=== PATIENT | female | born 1950 | race Caucasian/White ===

== ENCOUNTER → 2016-08-10 | Outpatient (CLI) | payer OTHER ==
[~2016-08-10] MED LIST: ACETAMINOPHEN325 MG PO; ACETAMINOPHEN650 M1 PO; ALEVE PO; ALPRAZOLAM0.25 MG PO; ALPRAZOLAM0.5 MG PO; ANASTROZOLE1 MG PO; APAP325 MG PO; AROMASIN25 MG PO; ASPIRIN81 M2 PO; CALCIUM500 MG PO; CALTRATE 600 W-1 TAB PO; COMBIVENT U/D3 ML INH; DOC-Q-LACE100 MG PO; DUONEB 2.5-0.5 M3 ML IH; ENOXAPARIN40 MG/0.4 SUBQ; GENTLE LAXATIVE10 MG RC; HYDROCHLOROTH12.5 M1 PO; HYDROCHLOROTH12.5 MG PO; HYDROCHLOROTHIA25 MG PO; HYDROCODON-ACE1 EAC5 PO; HYDROCODON-ACE1 EACH PO; IBRANCE125 MG; K-DUR20 ME1 PO; KEFLEX500 M1 PO; KEPPRA500 M1 PO; MS CONTIN15 MG PO; MYLANTA125 MG PO; NICOTINE TRANSD21 MG TD; NYSTATIN5 ML PO; OMEPRAZOLE20 M2 PO; ORAMORPH SR30 MG PO; OXYCODON-ACETA1 EAC1 PO; PERCOCET PO; TEMAZEPAM30 MG PO; TRAMADOL HCL50 M2 PO; VITAMIN C500 M1 PO; ZOLPIDEM TARTRAT5 MG PO; ZOSYN 3.373.375 G/VI IV
--- NOTE | ~2016-08-10 | XA91 ---
[facility] A Service of [facility] RADIOLOGY TEXT RESULTS PATIENT: FRANTZ IBARRA LOCATION: [facility] : 48 UNIT #: [id number] AGE: [address]: Talib Gee MD SEX: F ORDER DR: [id number] [facility] [address] [place], [place] [address] [id number] O MR#: [id number] Acc #: [id number] NAME: FRANTZ IBARRA : 1950 SEX: F STUDY DATE/TIME: 08/10/2016 8:15 UNIT: [facility] ROOM: STUDY DESCRIPTION: XA CVC Tunneled W Port Attending Physician: Talib Gee M.D. Ordering Physician: Talib Gee M.D. Primary Care Physician: Kaitlynn Ramsey A.P.R.N. MEDICAL IMAGING REPORT This report is preliminary unless electronic signature is present EXAM MediPort placement INDICATION Lung cancer. Patient has a known history of breast cancer and has subsequently been diagnosed with lung cancer. PROCEDURE The procedure was explained to the patient including risks, benefits and potential complications and potential for alternative forms of treatment. Informed consent was obtained and prior to initiating the procedure, a formal time-out procedure was performed. Using all elements of maximal sterile barrier technique including hand hygiene, caps, sterile gowns, and gloves and masks, the right neck and chest were prepped with 2% Chlorhexidine for cutaneous antisepsis and covered with a large sterile sheath. Real-time sterile ultrasound guidance was used to localize the right internal jugular vein which was found to be patent and compressible. A hard copy ultrasound image was obtained after local anesthesia with 1% Xylocaine and venous puncture using real-time sterile ultrasound guidance and an 0.018 guidewire was advanced into the superior vena cava and under fluoroscopic guidance. Micropuncture sheath was advanced over the wire and a J-wire was advanced into the inferior vena cava. At this point, I turned my attention to creation of port pocket. The skin and subcutaneous tissues at the right anterolateral chest wall were assessed with buffered lidocaine and lidocaine with epinephrine. A small skin incision was made. Port pocket was created using a combination of blunt and sharp dissection and the port was seen within the pocket and secured using 2 3-0 Vicryl sutures. The catheter was then tunneled up through the right anterolateral chest wall to the insertion site at the neck. A peel-away sheath was advanced through the wire. [facility]ter was measured and [facility] RADIOLOGY TEXT RESULTS PATIENT: FRANTZ IBARRA LOCATION: [facility] : 48 UNIT #: [id number] AGE: [address]: Talib Gee MD SEX: F ORDER DR: and was positioned within the superior vena cava. Following placement of the catheter it flushed and aspirated easily. Its position was confirmed with a radiographic image. Deep layer port pocket was closed using interrupted 3-0 Vicryl sutures. A running 4-0 Monocryl suture was used to close the skin and a single 4-0 Monocryl suture was used to close the insertion site at the neck. Dermabond was applied to the wound to act as a dressing. Total fluoroscopy time was 0.1 minutes AK was 1 mGy. The patient did receive conscious sedation consisting 4 mg of Versed and 25 mcg of Fentanyl and continuous monitoring was provided throughout the procedure. IMPRESSION Technically successful right internal jugular vein MediPort placement. Ultrasound and fluoroscopy were used during placement of the catheter and permanent images were saved. Dictated by... Millie Szymanski M.D. THIS IS AN ELECTRONICALLY VERIFIED REPORT Millie Szymanski M.D. at 08/10/2016 5:27 PM AFF/aa TD: 08/10/2016 12:13 JOB #: [id number] MEDICAL IMAGING REPORT COPY
[2016-08-10 06:51] LABS: PARTIAL THROMBOPLASTIN TIME 27.3 SECONDS (23.5-31.3); PROTHROMBIN TIME (PATIENT) 10.3 SECONDS (9.6-11.5)
[2016-08-10 06:54] LABS: HEMATOCRIT 36.7 % (35.0-45.0); HEMOGLOBIN 12.5 gm/dL (12.0-16.0); MEAN CORPUSCULAR HEMOGLOBIN 38.6 PG (28-34); MEAN CORPUSCULAR HGB CONC 34.2 g/dL (30-36); MEAN PLATELET VOLUME 8.5 FL (6.5-11.5); RED BLOOD COUNT 3.24 X10e (3.90-5.30); RED CELL DISTRIBUTION WIDTH 14.1 % (11.0-15.5)
== END | disposition home or self-care (01) ==
LOC: CIVR 05:58
PROVIDERS: Internal Medicine Hematology
PROC: 05HM33Z Insertion of Infusion Device into Right Internal Jugular Vein, Percutaneous Approach (ICD-10-PCS; principal; 2016-08-10)
DX: Z45.2 Encounter for adjustment and management of vascular access device (principal); C50.112 Malignant neoplasm of central portion of left female breast; C79.51 Secondary malignant neoplasm of bone; C34.91 Malignant neoplasm of unspecified part of right bronchus or lung; Z17.0 Estrogen receptor positive status [ER+]; F17.200 Nicotine dependence, unspecified, uncomplicated; G40.909 Epilepsy, unspecified, not intractable, without status epilepticus; Z79.899 Other long term (current) drug therapy
CPT/HCPCS: 36415; 76937; 77001; 85027; 85610; 85730; C1788; J0690; J1642; J2250; J3010

== ENCOUNTER → 2016-12-27 | Outpatient (CLI) | payer OTHER ==
--- NOTE | ~2016-12-27 | CT2 ---
[facility] A Service of [facility] RADIOLOGY TEXT RESULTS PATIENT: FRANTZ IBARRA LOCATION: [facility] : 48 UNIT #: [id number] AGE: [address]: Michael Calderón MD SEX: F ORDER DR: [id number] [id number] [place], [place] [address] [id number] O MR#: [id number] Acc #: [id number] NAME: FRANTZ IBARRA : 1950 SEX: F STUDY DATE/TIME: 12/27/2016 8:11 UNIT: [facility] ROOM: STUDY DESCRIPTION: CT Abd and Pelv W Cont Attending Physician: Michael Calderón M.D. Referring Physician: Michael Calderón M.D. Ordering Physician: Michael Calderón M.D. Primary Care Physician: [facility] IMAGING REPORT This report is preliminary unless electronic signature is present EXAM CT abdomen and pelvis with contrast INDICATION Restaging lung cancer. Observation for response to therapy and metastatic disease. PROCEDURE Contrast-enhanced CT of the abdomen and pelvis. This CT exam was performed with one or more of the following radiation dose reduction techniques: automatic exposure control, adjustment of mA and/or kV according to patient size, and iterative reconstruction. COMPARISON 07/14/2016 FINDINGS ABDOMEN WITH CONTRAST: There is a 7.0 mm low-attenuation lesion in segment 4B of the liver. This is new compared with the prior. It is indeterminate on this study, but is suspicious for a small metastasis. The spleen, adrenal glands, pancreas, gallbladder unremarkable. The bowel loops are nondilated. Moderate colonic stool burden. Atrophy of the right kidney is stable. No abdominal adenopathy. PELVIS WITH CONTRAST: Much of the pelvis is obscured by streak artifact from the right hip prosthesis. No appreciable pelvic mass or adenopathy. Osseous metastatic disease is not significantly changed from the prior. IMPRESSION 1. Stable osseous metastatic disease. [facility] A Service [facility] RADIOLOGY TEXT RESULTS PATIENT: FRANTZ IBARRA LOCATION: [facility] : 48 UNIT #: [id number] AGE: [address]: Michael Calderón MD SEX: F ORDER DR: 2. Refer to the separately dictated chest CT for thoracic findings. 3. There is a 7.0 mm low density lesion in segment 4B of the liver not clearly seen on the prior. It is indeterminate but suspicious for a small metastasis. This should be followed on future studies. Dictated by... Juan Carlos Cruz M.D. THIS IS AN ELECTRONICALLY VERIFIED REPORT Juan Carlos Cruz M.D. at 12/28/2016 10:45 AM Sadiq TD: 12/27/2016 13:12 JOB #: [id number] MEDICAL IMAGING REPORT Page 1 of 1 COPY
--- NOTE | ~2016-12-27 | MR17 ---
[facility] A Service of [facility] RADIOLOGY TEXT RESULTS PATIENT: FRANT[facility] IBARRA [facility] UNIT #: [id number] AGE: [address]: Michael Calderón MD SEX: F ORDER DR: [id number] [facility] [address] [place], [place] [address] [id number] O MR#: [id number] Acc #: [id number] NAME: FRANTZ IBARRA : 1950 SEX: F STUDY DATE/TIME: 12/27/2016 11:00 UNIT: [facility] ROOM: STUDY DESCRIPTION: MR Brain WWo Contrast Attending Physician: Michael Calderón M.D. Referring Physician: Michael Calderón M.D. Ordering Physician: Michael Calderón M.D. Primary Care Physician: [facility] CENTER REPORT This report is preliminary unless electronic signature is present. EXAM MRI of the brain with and without contrast dated 12/27/2016 COMPARISON MRI brain with and without contrast dated 08/02/2016. HISTORY Breasts, lung and bone cancer. Evaluate for metastatic disease. No new symptoms. FINDINGS Multisequence, multiplanar imaging of the brain was obtained with and without contrast. GFR measured greater than 60. 12 mL of MultiHance was administered intravenously. No acute stroke, enhancing mass, mass effect, midline shift or hydrocephalus. Age-appropriate parenchymal volume is seen. Scattered few small hyperintense T2-signal lesions are noted in the subcortical white matter, periventricular white matter, posterior aspect of right external/extreme capsule and adjacent putamen, marii. There is also a hyperintense T2 nonenhancing lesion noted in the lateral aspect of the right anterior commissure, along the inferior aspect of the right lentiform nucleus. These are stable in the last 5 months. Age-appropriate parenchymal volume is seen. No enhancing lesions. IMPRESSION 1. No significant interval change. 2. Scattered nonspecific nonenhancing hyperintense T2-signal lesions are noted in the brain, likely related to mild chronic microvascular ischemic change or migraine based on age and statistics. 3. No enhancing mass to suggest metastasis. Dictated by... Tatianna Gipson M.D. [facility]. [facility] A Service of [facility] & [facility] RADIOLOGY TEXT RESULTS PATIENT: FRANTZ IBARRA LOCATION: [facility] : 48 UNIT #: [id number] AGE: [address]: Michael Calderón MD SEX: F ORDER DR: THIS IS AN ELECTRONICALLY VERIFIED REPORT Tatianna Gipson M.D. at 12/28/2016 1:13 PM CPR/mjs TD: 12/28/2016 08:56 JOB #: [id number] MRI CENTER REPORT Page 1 of 1 COPY
--- NOTE | ~2016-12-27 | CT55 ---
[facility] A Service of [facility] & [facility] RADIOLOGY TEXT RESULTS PATIENT: FRANTZ IBARRA LOCATION: [facility] : 48 UNIT #: [id number] AGE: [address]: Michael Calderón MD SEX: F ORDER DR: [id number] [facility] [address] [place], [place] [address] [id number] O MR#: [id number] Acc #: [id number] NAME: FRANTZ IBARRA : 1950 SEX: F STUDY DATE/TIME: 12/27/2016 09:40 UNIT: [facility] ROOM: STUDY DESCRIPTION: CT Chest W Con Attending Physician: Michael Calderón M.D. Referring Physician: Michael Calderón M.D. Ordering Physician: Michael Calderón M.D. Primary Care Physician: [facility] IMAGING REPORT This report is preliminary unless electronic signature is present EXAM CT chest with contrast 12/27/2016 0940 hours CLINICAL HISTORY 66-year-old woman with history of prior breast cancer and limited stage small cell lung carcinoma for restaging. Patient has received chemo and radiation therapy. COMPARISON PET/CT 08/02/2016, chest CT 07/14/2016. TECHNIQUE Dynamic helical CT images were obtained from the lung apices through the adrenal glands. Sagittal and coronal reconstructions were performed. Total exam DLP for the chest, abdomen and pelvis study today is 805 mGy-cm. This CT examination was performed with one or more of the following radiation dose reduction techniques: automatic exposure control, adjustment of mA and/or kV according to patient size, and iterative reconstruction. FINDINGS Images through the thoracic inlet demonstrate no thyroid mass or supraclavicular adenopathy. There is a right IJ port catheter with tip terminating in SVC. Images through the chest demonstrate no pathologic superior mediastinal, mediastinal or hilar adenopathy. Previous enlarged, PET positive nodes seen on PET/CT 08/02/2016 are no longer seen. Previous right pleural effusion is no longer seen. The nodule or mass in the anterior right upper lobe seen on PET/CT 08/02/2016 is significantly smaller with ovoid residual density measuring only 7 mm where previous mass measured 1.8 x 1.4 cm. There is subtle nodular thickening of the STS. [facility] A Service of [facility] RADIOLOGY TEXT RESULTS PATIENT: FRANTZ IBARRA LOCATION: [facility] : 48 UNIT #: [id number] AGE: [address]: Michael Calderón MD SEX: F ORDER DR: pleura within the fissure on the right appearing [id number] improved. No left lung nodules are seen. There is sclerotic density at previous bone lesions in the right anterior mid ribs. There is sclerotic change in the lower thoracic spine. There is sclerotic change in the mid to lower sternum similar to prior exam. IMPRESSION 1. Significant interval improvement. No residual pathologic nodes in the mediastinum. Previous right upper lobe nodule is significantly decreased measuring 7 mm previously 1.8 x 1.4 cm. There is some residual slightly nodular thickening of the pleura within the fissure on the right but no residual pleural effusion. 2. No new pulmonary parenchymal nodules. 3. There are sclerotic changes in the right ribs, thoracic spine and sternum at site of previous PET positive bone lesions. No new bone lesions are seen. Dictated by... Krystal Montez M.D. THIS IS AN ELECTRONICALLY VERIFIED REPORT Krystal Montez M.D. at 12/27/2016 2:30 PM SHANIQUA/cici TD: 12/27/2016 12:03 JOB #: [id number] MEDICAL IMAGING REPORT Page 1 of 1 COPY
[2016-12-27 08:41] LABS: CREATININE SERUM 0.6 mg/dL (0.6-1.4); GLOM FILT RATE Estimated 93.7 mL/min (>60)
== END | disposition home or self-care (01) ==
LOC: CCAT 07:49
PROVIDERS: Radiology Radiation Oncology
DX: C79.51 Secondary malignant neoplasm of bone (principal); C34.91 Malignant neoplasm of unspecified part of right bronchus or lung; K76.89 Other specified diseases of liver
CPT/HCPCS: 36415; 70553; 71260; 74177; 82565; 84520; A9577; Q9967

== ENCOUNTER → 2017-01-02 | Outpatient (CLI) | payer OTHER ==
--- NOTE | ~2017-01-02 | MR2 ---
[facility] A Service of [facility] & [facility] RADIOLOGY TEXT RESULTS PATIENT: FRANTZ IBARRA [facility] UNIT #: [id number] AGE: [address]: Michael Calderón MD SEX: F ORDER DR: [id number] [facility] [address] [place], [place] [address] [id number] O MR#: [id number] Acc #: [id number] NAME: FRANTZ IBARRA : 1950 SEX: F STUDY DATE/TIME: 01/02/2017 8:44 UNIT: [facility] ROOM: STUDY DESCRIPTION: MR Abdomen WWo Cont Attending Physician: Michael Calderón M.D. Referring Physician: Michael Calderón M.D. Ordering Physician: Michael Calderón M.D. Primary Care Physician: [facility] CENTER REPORT This report is preliminary unless electronic signature is present. EXAM MR abdomen INDICATION Liver mass. Breast cancer with osseous metastatic disease. Initial MRI staging of the abdomen. TECHNIQUE Multiplanar MRI of the abdomen with and without contrast (12 mL MultiHance IV contrast). COMPARISON CT abdomen and pelvis dated 12/27/2016, PET/CT 08/02/[address] abdomen 07/14/2016. FINDINGS The liver has a normal morphology. There is no hepatic steatosis or iron deposition. There is a small mass in the inferior left hepatic lobe (segment 4B). There is a similar lesion in the dome of the liver in segment 8 measuring 0.6 cm. These lesions have hyperintense signal on the T1-weighted sequence. Both areas are hypovascular. There is rim enhancement of the larger lesion. The larger lesion shows some peripheral rim enhancement concerning for a metastatic focus. The smaller lesion in the dome liver is indeterminate. Gallbladder is not distended. The pancreas, spleen, adrenal glands are unchanged. There is asymmetric atrophy of the right kidney. The bowel is not dilated. Gallbladder is not distended. There is abnormal bone marrow signal in the T10 endplate. Please refer to the prior CT scan of the chest for details. IMPRESSION 1. Small 0.7 cm hypovascular mass in the inferior left hepatic lobe STS. [facility] A Service of [facility] & [facility] RADIOLOGY TEXT RESULTS PATIENT: FRANTZ IBARRA [facility] UNIT #: [id number] AGE: [address]: Michael Calderón MD SEX: F ORDER DR: (segment 4B). This mass has imaging features concerning for a small hepatic metastasis, particularly given its development since the June 2016 comparison. Continued followup is warranted. 2. Smaller 0.6 cm mass at the dome of the liver in segment 8 is indeterminate and can be followed. Dictated by... Dave Fink M.D. THIS IS AN ELECTRONICALLY VERIFIED REPORT Dave Fink M.D. at 01/03/2017 3:09 PM Nirmal TD: 01/03/2017 10:56 JOB #: [id number] MRI CENTER REPORT Page 1 of 1 COPY
== END | disposition home or self-care (01) ==
LOC: CMRI 06:53
DX: C34.90 Malignant neoplasm of unspecified part of unspecified bronchus or lung (principal); K76.89 Other specified diseases of liver
CPT/HCPCS: 74183; A9577